=== PATIENT | female | born 1950 | race Caucasian/White ===

== ENCOUNTER → 2017-03-08 | Outpatient (CLI) | payer BC, OTHER ==
[2017-03-08 18:57] LABS: ALBUMIN 3.9 GM/DL (3.2-5.2); ALBUMIN/GLOBULIN RATIO 1.05 (1.00-1.93); ALKALINE PHOSPHATASE 72 U/L (45-117); ALT/SGPT 14 U/L (12-78); ANION GAP 9 MEQ/L (8-16); AST/SGOT 15 U/L (15-37); BILIRUBIN,TOTAL 0.5 MG/DL (0.2-1.0); BLOOD UREA NITROGEN 22 MG/DL (7-18); CALCIUM LEVEL 9.1 MG/DL (8.8-10.2); CARBON DIOXIDE LEVEL 27 MEQ/L (21-32); CHLORIDE LEVEL 105 MEQ/L (98-107); CHOLESTEROL LEVEL 185 MG/DL (<200); CREATININE FOR GFR 0.73 MG/DL (0.55-1.02); GLOMERULAR FILTRATION RATE > 60.0 (>45); GLUCOSE, FASTING 106 MG/DL (80-110); POTASSIUM SERUM 4.7 MEQ/L (3.5-5.1); SODIUM LEVEL 141 MEQ/L (136-145); TOTAL PROTEIN 7.6 GM/DL (6.4-8.2); TRIGLYCERIDES LEVEL 168 MG/DL (<150)
== END ==
LOC: M SMT 13:03
PROVIDERS: ATTEND Family Medicine
DX: E55.9 Vitamin D deficiency, unspecified (principal); R53.83 Other fatigue; Z13.220 Encounter for screening for lipoid disorders

== ENCOUNTER 2018-04-14 16:12 | Emergency (ER) | payer BC, OTHER | END 2018-04-14 17:54 | disposition home or self-care (01) | LOC: M ED 16:12 | DX: S01.81XA Laceration without foreign body of other part of head, initial encounter (principal); W19.XXXA Unspecified fall, initial encounter; Y92.099 Unspecified place in other non-institutional residence as the place of occurrence of the external cause; Y93.9 Activity, unspecified; Y99.9 Unspecified external cause status; Z79.899 Other long term (current) drug therapy; Z79.82 Long term (current) use of aspirin | CPT/HCPCS: 70450 ==

== ENCOUNTER 2018-04-15 11:31 | Emergency (ER) | payer BC, OTHER ==
[2018-04-15] MEDS: ONDANSETRON 4MG/2ML VIAL (J2405) IV (12:53)
[2018-04-15] MEDS: NS 1,000 ML IV (12:53)
[2018-04-15] MEDS: LABETALOL HCL 100 MG/20 ML VIAL IV (12:56)
[2018-04-15 12:59] LABS: BASO % 0.2 % (0.0-1.0); HEMATOCRIT 47.7 % (36.0-47.0); HEMOGLOBIN 16.4 g/dl (12.0-15.5); IMMATURE GRANULOCYTE % 0.5 % (0-3.0); LYMPH # 0.9 10^3/uL (1.5-4.5); LYMPH % 4.8 % (24.0-44.0); MEAN CORPUSCULAR HEMOGLOBIN 30.7 pg (27.0-33.0); MEAN CORPUSCULAR HGB CONC 34.4 g/dl (32.0-36.5); MEAN CORPUSCULAR VOLUME 89.3 fl (80.0-96.0); MONO # 1.3 10^3/uL (0.0-0.8); MONO % 6.5 % (0.0-5.0); NEUTROPHILS # 17.4 10^3/uL (1.8-7.7); PLATELET COUNT, AUTOMATED 261 10^3/uL (150-450); RED BLOOD COUNT 5.34 10^6/uL (4.00-5.40); RED CELL DISTRIBUTION WIDTH 13.2 % (11.5-14.5); WHITE BLOOD COUNT 19.8 10^3/uL (4.0-10.0)
[2018-04-15] MEDS: diphenhydrAMINE INJ 50MG/ML VIAL (J1200) IV (13:09)
[2018-04-15 13:26] LABS: ALBUMIN 4.6 GM/DL (3.2-5.2); ALKALINE PHOSPHATASE 107 U/L (45-117); ALT/SGPT 28 U/L (12-78); ANION GAP 16 MEQ/L (8-16); AST/SGOT 19 U/L (7-37); BILIRUBIN,DIRECT 0.1 MG/DL (0.0-0.2); BILIRUBIN,TOTAL 0.5 MG/DL (0.2-1.0); BLOOD UREA NITROGEN 26 MG/DL (7-18); CALCIUM LEVEL 9.9 MG/DL (8.8-10.2); CARBON DIOXIDE LEVEL 24 MEQ/L (21-32); CHLORIDE LEVEL 106 MEQ/L (98-107); GLOMERULAR FILTRATION RATE > 60.0 (>45); GLUCOSE, FASTING 160 MG/DL (70-100); LIPASE 188 U/L (73-393); SODIUM LEVEL 146 MEQ/L (136-145); TOTAL PROTEIN 8.8 GM/DL (6.4-8.2)
[2018-04-15] MEDS ORDERED: ISOVUE-370 76% 100ML VIAL (Q9967) As Ordered (13:28)
== END 2018-04-15 15:50 | disposition home or self-care (01) ==
LOC: M ED 11:31
DX: R10.12 Left upper quadrant pain (principal); R11.2 Nausea with vomiting, unspecified; Z79.899 Other long term (current) drug therapy; Z79.82 Long term (current) use of aspirin
CPT/HCPCS: J1200

== ENCOUNTER → 2018-05-21 | Outpatient (REF) | payer BC, OTHER ==
[2018-05-21 22:11] LABS: PREALBUMIN 29.6 MG/DL (20.0-40.0)
== END ==
LOC: M LAB REF 16:49
DX: G20 Parkinson's disease (principal)
CPT/HCPCS: 84134

== ENCOUNTER → 2018-05-29 | Outpatient (REF) | payer OTHER | LOC: M LAB REF 15:56 | DX: R30.0 Dysuria (principal) ==

== ENCOUNTER 2018-06-07 13:39 | Outpatient (RCR) | payer BC, OTHER | END 2018-06-28 | LOC: M ST 13:39 | DX: R13.10 Dysphagia, unspecified (principal) ==

== ENCOUNTER → 2018-07-08 | Outpatient (CLI) | payer BC, OTHER | LOC: M ST 10:40 | DX: R13.12 Dysphagia, oropharyngeal phase (principal) | CPT/HCPCS: 74230 ==

== ENCOUNTER → 2018-07-29 | Outpatient (RCR) | payer BC, OTHER ==
[~2018-07-29] MED LIST: ASPIRIN; CARB/LEVO PO; MIRT-14 PO; NORCOTAB PO; RASA1TAB PO; VITA50005 PO; ZOFR4TAB14 PO
== END ==
LOC: M ST 07-01 13:00 → M PT 07-10 14:00 → M OT 07-15 11:26
PROVIDERS: ATTEND Family Medicine
DX: G23.1 Progressive supranuclear ophthalmoplegia [Steele-Richardson-Olszewski] (principal)
CPT/HCPCS: 92507; 92526; 97110; 97112; 97116; 97140; 97163; 97165; G8996; G8997

== ENCOUNTER 2018-08-28 10:30 | Outpatient (RCR) | payer BC, OTHER | END 2018-08-29 | LOC: M OT 10:30 | PROVIDERS: ATTEND Family Medicine | DX: R13.12 Dysphagia, oropharyngeal phase (principal); G23.1 Progressive supranuclear ophthalmoplegia [Steele-Richardson-Olszewski] ==

== ENCOUNTER → 2020-01-14 | Outpatient (REF) | payer OTHER ==
[~2020-01-14] MED LIST changes: +HYDR-3715 PO; -MIRT-14 PO; +MIRT1TAB15 PO; -NORCOTAB PO
== END ==
LOC: M LAB REF 10:55
PROVIDERS: ATTEND Family Medicine
DX: R19.7 Diarrhea, unspecified (principal)